=== PATIENT | female | born 1995 | race Caucasian/White ===

== ENCOUNTER 2023-07-25 23:11 | Inpatient (IN) | payer SELFPAY ==
[2023-07-25 23:14] VITALS: BP 158/98; PULSE 55; RESP 15; TEMP 36.6; O2SAT 100; BMI 40.8
[2023-07-25 23:19] VITALS: PULSE 54; RESP 14; O2SAT 96
--- NOTE | 2023-07-25 23:31 | W.ED.ABDPA2 ---
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 The pain has reportedly been intermittent, primarily located in the epigastric region though states that it moves to the right upper quadrant as well. She notes some associated nausea and states today she began vomiting, too many episodes to count. She denies any bowel or bladder changes. No fevers or chills reported. She does note that the pain seems to be worsened with eating spicy foods. She still has her gallbladder and appendix. No other pertinent medical history to report. Patient's first language is [place], though friend in the room is able to successfully translate. Pain is present on examination, and reportedly a sharp. MD elicited complaint: abdominal pain Pertinent past history: none Onset (ago): day(s) Pain Consistency: intermittent Location: Epigastric and RUQ Severity: moderate Quality: sharp Exacerbating factors: eating Relieving factors: nothing Associated Symptoms: Reports nausea and vomiting; Denies bloating, change in stool character, chills, constipation, diarrhea, dysuria, fever(s) and hematochezia Review of Systems General: Reports: 10 or more systems reviewed and unremarkable except in HPI and below Const: Denies: fever(s), chills, change in appetite, change in weight or diaphoresis ENMT: Denies: throat pain or hoarseness Card: Denies: chest pain, palpitations or lightheadedness Resp: Denies: dyspnea, productive cough or wheezing GI: Reports: abdominal pain, nausea and vomiting; Denies: diarrhea, constipation, bloating, change in stool character or hematochezia : Denies: flank pain, difficulty voiding, dysuria, urinary frequency or urinary urgency Musc: Denies: neck pain or back pain Skin/Breast: Denies: rash or new lesions Neuro: Denies: headache(s) or dizziness Physical Exam Const: COMMON NORMALS: patient oriented x3, healthy appearing, alert and well nourished EXAM LIMITATIONS: language barrier GENERAL APPEARANCE: cooperative, comfortable and in distress (Clutching middle of abdomen) NUTRITIONAL APPEARANCE: obese ORIENTATION/CONSCIOUSNESS: Yes awake HENMT: COMMON NORMALS: normocephalic, atraumatic, hearing grossly normal bilaterally, external ears normal, Normal external nose present, Normal nasal mucous membranes and turbinates present and moist oral mucous membranes HEAD & SCALP: normocephalic and atraumatic NOSE: Normal external nose present and Normal nasal mucous membranes and turbinates present EXTERNAL EAR: Yes external ears normal Eye: COMMON NORMALS: Equal, round and reactive pupils present, EOMs intact bilaterally, conjunctivae normal and normal visual chawla by confrontation CONJUNCTIVA: Yes conjunctivae normal PUPIL: Yes Equal, round and reactive pupils present Neck/C-Spine: COMMON NORMALS: full ROM, supple, no meningeal signs and no JVD Resp: COMMON NORMALS: normal respiratory effort, No retractions, No use of accessory muscles and clear to auscultation bilaterally AUSCULTATION: clear to auscultation bilaterally, no crackles, no rales, no rhonchi and no wheezes Cardio: COMMON NORMALS: no JVD, regular rate, regular rhythm, S1 normal heart sound present, S2 normal heart sound present, No gallops present (Cardio), No clicks present (Cardio), No murmurs present (Cardio), No rub (Cardio) and Peripheral pulses 2+ throughout RATE: regular rate RHYTHM: regular rhythm HEART SOUNDS: S1 normal heart sound present and S2 normal heart sound present PERIPHERAL PULSES: Peripheral pulses 2+ throughout GI: COMMON NORMALS: Normal to inspection, nondistended, normoactive bowel sounds present, Soft to palpation, No hepatosplenomegaly present and no masses INSPECTION: Yes central obesity AUSCULTATION: Yes normoactive bowel sounds PALPATION: Yes Soft to palpation, Yes Tenderness to palpation present (GI) (Epigastric and right upper quadrant, negative Pickard's), No Guarding due to palpation present (GI), No Rigid due to palpation and Yes No hepatosplenomegaly present RECTAL EXAM: deferred : COMMON NORMALS: Yes no CVA tenderness BLADDER/KIDNEY EXAM: Yes no CVA tenderness Back/Pelvis: COMMON NORMALS: no CVA tenderness Extremity: COMMON NORMALS: normal to inspection and full ROM Neuro: COMMON NORMALS: patient oriented x3, moves all extremities, no focal motor deficits and no sensory deficits noted SENSORIUM/ORIENTATION: Yes alert MENINGEAL SIGNS: Yes no meningeal signs Psych: COMMON NORMALS: mental status grossly normal, cooperative and speech normal SPEECH: Yes normal speech Skin: COMMON NORMALS: no rashes or lesions noted GENERAL SKIN EXAM: no rashes or lesions noted Course Vital Signs: Vital signs: Vital Signs Temperature 98.3 F 07/26/23 11:13 Pulse Rate 57 L 07/26/23 11:13 Respiratory Rate 15 07/26/23 11:13 Blood Pressure 120/77 07/26/23 11:13 Pulse Oximetry 98 07/26/23 11:13 Oxygen Delivery Me thod Room Air 07/26/23 11:13 MDM - Abdominal Pain Lab Data 07/26/23 00:00 07/26/23 06:34 Labs/Radiology: Radiology Impressions Gallbladder Ultrasound 07/26/23 00:01 IMPRESSION: 1. Cholelithiasis. No convincing secondary findings of acute cholecystitis. 2. Negative for biliary obstruction. Abdomen/Pelvis CT 07/26/23 00:28 IMPRESSION: 1. Negative for acute abdominopelvic pathology. No specific CT scan features of acute pancreatitis identified. 2. Incidental finding small simple left ovarian cyst. No further imaging is recommended. (Reference: Uday) REFERENCES: Frye et al. Management of Incidental Adnexal Findings on CT and MRI: A White Paper of the ACR Incidental Findings Committee, J Am [facility]en Radiol. 2019;17(2):248-254. Cholangiopancreatography MRI 07/26/23 05:38 IMPRESSION: 1. Cholelithiasis. No changes of acute cholecystitis. 2. No changes of primary sclerosing cholangitis. Venous Duplex 07/26/23 06:04 IMPRESSION: No evidence of deep vein thrombosis. Laboratory Results WBC 7.73 10^3/uL (3.29-11.43) 07/26/23 00:00 RBC 4.73 10^6/uL (3.85-5.65) 07/26/23 00:00 Hgb 11.80 g/dL (11.27-16.99) 07/26/23 00:00 Hct 37.4 % (36-47) 07/26/23 00:00 MCV 79.1 fl (85-98) L 07/26/23 00:00 MCH 24.9 pg (27-33) L 07/26/23 00:00 MCHC 31.6 g/dL (30-55) 07/26/23 00:00 RDW 15.1 % (12.1-15.1) 07/26/23 00:00 Plt Count 305 10^3/cmm (157-399) 07/26/23 00:00 MPV 10.3 fL (7.4-10.4) 07/26/23 00:00 Neut % (Auto) 72.8 % 07/26/23 00:00 Lymph % (Auto) 21.9 % 07/26/23 00:00 Arthur % (Auto) 3.8 % 07/26/23 00:00 Eos % (Auto) 1.0 % 07/26/23 00:00 Baso % (Auto) 0.4 % 07/26/23 00:00 Neut # (Auto) 5.63 10^3/uL (1.8-7.7) 07/26/23 00:00 Lymph # (Auto) 1.7 10^3/uL (0.8-4.8) 07/26/23 00:00 Arthur # (Auto) 0.3 10^3/uL (0.2-0.9) 07/26/23 00:00 Eos # (Auto) 0.1 10^3/uL (0.0-0.8) 07/26/23 00:00 Baso # (Auto) 0.0 10^3/uL (0.0-0.1) 07/26/23 00:00 Nucleated RBC % (auto) 0 % 07/26/23 00:00 Nucleated RBCs # 0.0 /100WBC 07/26/23 00:00 PT 13.10 SECONDS (12.1-14.9) 07/25/23 23:55 INR 0.97 (0.8-1.2) 07/25/23 23:55 D-Dimer 0.78 ug/mLFEU (0-0.59) H 07/25/23 23:55 Sodium 136 mmol/L (136-145) 07/26/23 00:00 Potassium 3.5 mmol/L (3.5-5.1) 07/26/23 00:00 Chloride 99 mmol/L (98-107) 07/26/23 00:00 Carbon Dioxide 22 mmol/L (22-29) 07/26/23 00:00 Anion Gap 18.5 (5-19) 07/26/23 00:00 BUN 10 mg/dL (6-20) 07/26/23 00:00 Creatinine 0.5 mg/dL (0.5-0.9) 07/26/23 00:00 GFR Calculation 148.0 mL/min (90-130) H 07/26/23 00:00 Glucose 142 mg/dL (65-115) H 07/26/23 00:00 Calculated Osmolality 283 mOsm/kg (285-295) L 07/26/23 00:00 Lactic Acid 1.9 mmol/L (0.5-2.2) 07/25/23 23:55 Calcium 9.6 mg/dL (8.5-10.5) 07/26/23 00:00 Total Bilirubin 0.9 mg/dL (0.15-1.2) 07/26/23 00:00 GGT 629 U/L (5-36) H 07/25/23 23:55 AST 450 U/L (0-32) H 07/26/23 00:00 ALT 395 U/L (0-33) H 07/26/23 00:00 Alkaline Phosphatase 203 U/L (35-105) H 07/26/23 00:00 Lactate Dehydrogenase 530 U/L (135-214) H 07/25/23 23:55 C-Reactive Protein 3.3 mg/L (0.0-4.9) 07/25/23 23:55 Total Protein 8.4 g/dL (6.6-8.7) 07/26/23 00:00 Albumin 4.7 g/dL (3.5-5.2) 07/26/23 00:00 Globulin 3.7 g/dL (1.3-4.6) 07/26/23 00:00 Lipase 461 U/L (13-60) H 07/26/23 00:00 TSH 1.03 uIU/mL (0.27-4.20) 07/25/23 23:55 HCG, Qual Negative (Negative) 07/26/23 00:00 Urine Color Yellow (Yellow) 07/26/23:26 Urine Appearance Slightly cloudy (CLEAR) 05/25/24 01:26 Urine pH 9 (5-7) H 07/26/23 01:26 Ur Specific [place] 1.015 (1.005-1.030) 07/26/23 01:26 Urine Protein Neg (Negative) 07/26/23 01:26 Urine Glucose (UA) Norm (Normal) 07/26/23 01:26 Urine Ketones 2+ (Negative) H 07/26/23 01:26 Urine Blood 2+ (Negative) H 07/26/23 01:26 Urine Nitrate Negative (Negative) 07/26/23 01:26 Urine Bilirubin Neg (Negative) 07/26/23 01:26 Prot Sulfosalicylic Acd Negative (Negative) 07/26/23 01:26 Urine Urobilinogen Neg mg/dL (Negative) 07/26/23 01:26 Ur Leukocyte Esterase Trace (Negative) H 07/26/23 01:26 Urine RBC 5-10 /hpf (0-2) H 07/26/23 01:26 Urine WBC 0-4 /hpf (0-5) H 07/26/23 01:26 Ur Squamous Epith Cells 5-10 /hpf (0-5) H 07/26/23 01:26 Amorphous Sediment Trace /hpf 07/26/23 01:26 Urine Bacteria 1+ /hpf (NONE) H 07/26/23 01:26 Urine Opiates Screen Positive ng/mL (Negative) H 07/26/23 01:26 Acetaminophen < 5.0 ug/mL (10-30) L 07/25/23 23:55 Ur Barbiturates Screen Negative ng/mL (Negative) 07/26/23 01:26 Ur Phencyclidine Scrn Negative ng/mL (Negative) 07/26/23 01:26 Ur Amphetamines Screen Negative ng/mL (Negative) 07/26/23 01:26 U Benzodiazepines Scrn Negative ng/mL (Negative) 07/26/23 01:26 Urine Cocaine Screen Negative ng/mL (Negative) 07/26/23 01:26 U Marijuana (THC) Screen Negative ng/mL (Negative) 07/26/23 01:26 Ethyl Alcohol < 10 mg/dL (0-10) 07/25/23 23:55 All radiology interpretation(s) finalized by discharge Discharge Plan Discharge Patient Disposition: Admitted As Inpatient Admit Provider: Jany Mijares Clinical Impression: Right upper quadrant abdominal pain, Elevated LFTs, Elevated lipase Cholelithiasis Qualifiers: Cholelithiasis location: gallbladder Cholecystitis presence: without cholecystitis Biliary obstruction: without biliary obstruction Qualified Code(s): K80.20 - Calculus of gallbladder without cholecystitis without obstruction Nausea & vomiting Qualifiers: Vomiting type: unspecified Qualified Code(s): R11.2 - Nausea with vomiting, unspecified Condition: Stable Coding Level of Care Code ED Director Of Corporate Sales for Chg Fwd Documented by User: Tevin Daniels DO 07/26/23 04:35 HPI - Abdominal Pain General: Chief Complaint: Abdominal Pain Stated Complaint: Center abd pain Time Seen by Provider: 07/25/23 23:21 Course Vital Signs: Vital signs: Vital Signs Temperature 98.3 F 07/26/23 11:13 Pulse Rate 57 L 07/26/23 11:13 Respiratory Rate 15 07/26/23 11:13 Blood Pressure 120/77 07/26/23 11:13 Pulse Oximetry 98 07/26/23 11:13 Oxygen Delivery Me thod Room Air 07/26/23 11:13 MDM - Abdominal Pain Medical Decision Making Patient care transferred over to myself at shift change. Reviewed the lab that showed elevated liver enzymes with AST of 450 ALT of 395 total bilirubin normal at 0.9 and elevated lipase of 461, abdomen and pelvic CT scan showed features negative for intra-abdominal pathology no acute pancreatitis identified, gallbladder showed ultrasound of cholelithiasis no convincing findings of cholecystitis. Negative for obstruction. Patient was given total of 8 mg of morphine, 10 mg of Reglan, 1 L normal saline in the ER. Tried calling [facility] on-call several times were unable to get a hold of them. Consulted Dr. Mijares who agreed to place patient inpatient for further evaluation and treatment. Dr. Yuridia [facility] from [facility] eventually called back I reviewed the case with him he suggested that it this is probably a small CBD stone that is already passed in the liver enzymes and lipase will probably be trending down. He did suggest we get a viral hepatitis panel as well as do an MRCP. Lab Data 07/26/23 00:00 07/26/23 06:34 Labs/Radiology: Radiology Impressions Gallbladder Ultrasound 07/26/23 00:01 IMPRESSION: 1. Cholelithiasis. No convincing secondary findings of acute cholecystitis. 2. Negative for biliary obstruction. Abdomen/Pelvis CT 07/26/23 00:28 IMPRESSION: 1. Negative for acute abdominopelvic pathology. No specific CT scan features of acute pancreatitis identified. 2. Incidental finding small simple left ovarian cyst. No further imaging is recommended. (Reference: Uday) REFERENCES: Uday et al. Management of Incidental Adnexal Findings on CT and MRI: A White Paper of the ACR Incidental Findings Committee, J Am [facility]iol. 2019;17(2):248-254. Cholangiopancreatography MRI 07/26/23 05:38 IMPRESSION: 1. Cholelithiasis. No changes of acute cholecystitis. 2. No changes of primary sclerosing cholangitis. Venous Duplex 07/26/23 06:04 IMPRESSION: No evidence of deep vein thrombosis. Laboratory Results WBC 7.73 10^3/uL (3.29-11.43) 07/26/23 00:00 RBC 4.73 10^6/uL (3.85-5.65) 07/26/23 00:00 Hgb 11.80 g/dL (11.27-16.99) 07/26/23 00:00 Hct 37.4 % (36-47) 07/26/23 00:00 MCV 79.1 fl (85-98) L 07/26/23 00:00 MCH 24.9 pg (27-33) L 07/26/23 00:00 MCHC 31.6 g/dL (30-55) 07/26/23 00:00 RDW 15.1 % (12.1-15.1) 07/26/23 00:00 Plt Count 305 10^3/cmm (157-399) 07/26/23 00:00 MPV 10.3 fL (7.4-10.4) 07/26/23 00:00 Neut % (Auto) 72.8 % 07/26/23 00:00 Lymph % (Auto) 21.9 % 07/26/23 00:00 Arthur % (Auto) 3.8 % 07/26/23 00:00 Eos % (Auto) 1.0 % 07/26/23 00:00 Baso % (Auto) 0.4 % 07/26/23 00:00 Neut # (Auto) 5.63 10^3/uL (1.8-7.7) 07/26/23 00:00 Lymph # (Auto) 1.7 10^3/uL (0.8-4.8) 07/26/23 00:00 Arthur # (Auto) 0.3 10^3/uL (0.2-0.9) 07/26/23 00:00 Eos # (Auto) 0.1 10^3/uL (0.0-0.8) 07/26/23 00:00 Baso # (Auto) 0.0 10^3/uL (0.0-0.1) 07/26/23 00:00 Nucleated RBC % (auto) 0 % 07/26/23 00:00 Nucleated RBCs # 0.0 /100WBC 07/26/23 00:00 PT 13.10 SECONDS (12.1-14.9) 07/25/23 23:55 INR 0.97 (0.8-1.2) 07/25/23 23:55 D-Dimer 0.78 ug/mLFEU (0-0.59) H 07/25/23 23:55 Sodium 136 mmol/L (136-145) 07/26/23 00:00 Potassium 3.5 mmol/L (3.5-5.1) 07/26/23 00:00 Chloride 99 mmol/L (98-107) 07/26/23 00:00 Carbon Dioxide 22 mmol/L (22-29) 07/26/23 00:00 Anion Gap 18.5 (5-19) 07/26/23 00:00 BUN 10 mg/dL (6-20) 07/26/23 00:00 Creatinine 0.5 mg/dL (0.5-0.9) 07/26/23 00:00 GFR Calculation 148.0 mL/min (90-130) H 07/26/23 00:00 Glucose 142 mg/dL (65-115) H 07/26/23 00:00 Calculated Osmolality 283 mOsm/kg (285-295) L 07/26/23 00:00 Lactic Acid 1.9 mmol/L (0.5-2.2) 07/25/23 23:55 Calcium 9.6 mg/dL (8.5-10.5) 07/26/23 00:00 Total Bilirubin 0.9 mg/dL (0.15-1.2) 07/26/23 00:00 GGT 629 U/L (5-36) H 07/25/23 23:55 AST 450 U/L (0-32) H 07/26/23 00:00 ALT 395 U/L (0-33) H 07/26/23 00:00 Alkaline Phosphatase 203 U/L (35-105) H 07/26/23 00:00 Lactate Dehydrogenase 530 U/L (135-214) H 07/25/23 23:55 C-Reactive Protein 3.3 mg/L (0.0-4.9) 07/25/23 23:55 Total Protein 8.4 g/dL (6.6-8.7) 07/26/23 00:00 Albumin 4.7 g/dL (3.5-5.2) 07/26/23 00:00 Globulin 3.7 g/dL (1.3-4.6) 07/26/23 00:00 Lipase 461 U/L (13-60) H 07/26/23 00:00 TSH 1.03 uIU/mL (0.27-4.20) 07/25/23 23:55 HCG, Qual Negative (Negative) 07/26/23 00:00 Urine Color Yellow (Yellow) 07/26/23:26 Urine Appearance Slightly cloudy (CLEAR) 07/26/23 01:26 Urine pH 9 (5-7) H 07/26/23 01:26 Ur Specific [place] 1.015 (1.005-1.030) 07/26/23 01:26 Urine Protein Neg (Negative) 07/26/23:26 Urine Glucose (UA) Norm (Normal) 07/26/23 01:26 Urine Ketones 2+ (Negative) H 07/26/23 01:26 Urine Blood 2+ (Negative) H 07/26/23 01:26 Urine Nitrate Negative (Negative) 07/26/23 01:26 Urine Bilirubin Neg (Negative) 07/26/23 01:26 Prot Sulfosalicylic Acd Negative (Negative) 07/26/23 01:26 Urine Urobilinogen Neg mg/dL (Negative) 07/26/23 01:26 Ur Leukocyte Esterase Trace (Negative) H 07/26/23 01:26 Urine RBC 5-10 /hpf (0-2) H 07/26/23 01:26 Urine WBC 0-4 /hpf (0-5) H 07/26/23 01:26 Ur Squamous Epith Cells 5-10 /hpf (0-5) H 07/26/23 01:26 Amorphous Sediment Trace /hpf 07/26/23 01:26 Urine Bacteria 1+ /hpf (NONE) H 07/26/23 01:26 Urine Opiates Screen Positive ng/mL (Negative) H 07/26/23 01:26 Acetaminophen < 5.0 ug/mL (10-30) L 07/25/23 23:55 Ur Barbiturates Screen Negative ng/mL (Negative) 07/26/23 01:26 Ur Phencyclidine Scrn Negative ng/mL (Negative) 07/26/23 01:26 Ur Amphetamines Screen Negative ng/mL (Negative) 07/26/23 01:26 U Benzodiazepines Scrn Negative ng/mL (Negative) 07/26/23 01:26 Urine Cocaine Screen Negative ng/mL (Negative) 07/26/23 01:26 U Marijuana (THC) Screen Negative ng/mL (Negative) 07/26/23 01:26 Ethyl Alcohol < 10 mg/dL (0-10) 07/25/23 23:55 Discharge Plan Discharge Patient Disposition: Admitted As Inpatient Admit Provider: Jany Mijares Clinical Impression: Right upper quadrant abdominal pain, Elevated LFTs, Elevated lipase Cholelithiasis Qualifiers: Cholelithiasis location: gallbladder Cholecystitis presence: without cholecystitis Biliary obstruction: without biliary obstruction Qualified Code(s): K80.20 - Calculus of gallbladder without cholecystitis without obstruction Nausea & vomiting Qualifiers: Vomiting type: unspecified Qualified Code(s): R11.2 - Nausea with vomiting, unspecified Condition: Stable Coding Level of Care Code ED Director Of Corporate Sales for Nella Bragg
[2023-07-25] MEDS: lidocaine 2% viscous 15 ML, aluminum-mag hydrox-simethicon 30 ML, sucralfate oral liq 1 GM PO (23:43)
[2023-07-25 23:44] VITALS: RESP 18; O2SAT 96
[2023-07-25] MEDS: morphine 4 mg/mL SDV 1 mL IVP (23:44)
[2023-07-25] MEDS: sodium chloride 0.9% 1,000 ML 999 ML IV (23:55)
[2023-07-25] MEDS: metoclopramide 5 mg/mL SDV 2 mL 10 MG IVP (23:56)
[2023-07-26] VITALS (13 sets, daily range): BP systolic 120–162; BP diastolic 63–84; PULSE 50–87; RESP 15–20; TEMP 36.6–36.9; O2SAT 96–100
--- NOTE | 2023-07-26 00:01 | USR_ITS ---
PROCEDURE INFORMATION: Exam: US Abdomen, Limited; Right Upper Quadrant Exam date and time: 07/26/2023 1:01 AM Age: 28 years old Clinical indication: Abdominal pain; Localized; Right upper quadrant (ruq); Additional info: Epi/ruq pain TECHNIQUE: Imaging protocol: Real time ultrasound of the abdomen with image documentation. Limited exam focused on the right upper quadrant. COMPARISON: CT abdomen pelvis w con* [id number] 07/26/2023 12:55 AM FINDINGS: Liver: Normal. No masses. Gallbladder: Cholelithiasis. Unremarkable gallbladder wall thickness measuring 2 mm. Negative for pericholecystic fluid. Biliary ducts: Normal. No stones. No dilation. Pancreas: Visualized pancreas is unremarkable. Right kidney: Normal. No mass. No hydronephrosis. Intraperitoneal space: Negative for intraperitoneal fluid collection. US/US gall bladder [id number] IMPRESSION: 1. Cholelithiasis. No convincing secondary findings of acute cholecystitis. 2. Negative for biliary obstruction.
[2023-07-26 00:08] LABS: Basophils % 0.4 %; Eosinophils # 0.1 10^3/uL (0.0-0.8); Hematocrit 37.4 % (36-47); Lymphocytes # 1.7 10^3/uL (0.8-4.8); Lymphocytes % 21.9 %; Mean Corpuscular HGB Conc 31.6 g/dL (30-55); Mean Corpuscular Hemoglobin 24.9 pg (27-33); Mean Corpuscular Volume 79.1 fl (85-98); Mean Platelet Volume 10.3 fL (7.4-10.4); Monocytes # 0.3 10^3/uL (0.2-0.9); Monocytes % 3.8 %; Neutrophils # 5.63 10^3/uL (1.8-7.7); Neutrophils % 72.8 %; Nucleated Red Blood Cells % 0 %; Platelet Count 305 10^3/cmm (157-399); Red Blood Count 4.73 10^6/uL (3.85-5.65); Red Cell Distribution Width 15.1 % (12.1-15.1); White Blood Count 7.73 10^3/uL (3.29-11.43)
[2023-07-26 00:15] LABS: HCG, Serum Qual Negative (Negative)
[2023-07-26 00:21] LABS: Alanine Aminotransferase 395 U/L (0-33); Albumin Level 4.7 g/dL (3.5-5.2); Alkaline Phosphatase 203 U/L (35-105); Anion Gap 18.5 (5-19); Aspartate Amino Transferase 450 U/L (0-32); Blood Urea Nitrogen 10 mg/dL (6-20); Calcium 9.6 mg/dL (8.5-10.5); Carbon Dioxide 22 mmol/L (22-29); Chloride 99 mmol/L (98-107); Creatinine Clr Calc Pharmacy 174.0117; Globulin 3.7 g/dL (1.3-4.6); Glucose 142 mg/dL (65-115); Osmolality Calculated 283 mOsm/kg (285-295); Potassium 3.5 mmol/L (3.5-5.1); Sodium 136 mmol/L (136-145); Total Bilirubin 0.9 mg/dL (0.15-1.2); Total Protein 8.4 g/dL (6.6-8.7)
[2023-07-26 00:27] LABS: Lipase 461 U/L (13-60)
--- NOTE | 2023-07-26 00:28 | CTR_ITS ---
PROCEDURE INFORMATION: Exam: CT Abdomen And Pelvis With Contrast Exam date and time: 07/26/2023 12:55 AM Age: 28 years old Clinical indication: Pain and abnormal findings; Abnormal lab test; Elevated lipase; Abdominal pain; Patient HX: Epigastric pain with lipase of 461. ; Additional info: Epigastric pain/elevated lipase TECHNIQUE: Imaging protocol: Computed tomography of the abdomen and pelvis with contrast. Radiation optimization: All CT scans at this facility use at least one of these dose optimization techniques: automated exposure control; mA and/or kV adjustment per patient size (includes targeted exams where dose is matched to clinical indication); or iterative reconstruction. Contrast material: OMNI 350; Contrast volume: 100 ml; Contrast route: INTRAVENOUS (IV); COMPARISON: US gall bladder [id number] 08/30/2017 1:34 AM RADIATION DOSE METRICS: Total DLP (mGy-cm): 896.41 FINDINGS: Liver: Normal. No mass. Gallbladder and bile ducts: Normal. No calcified stones. No ductal dilation. Pancreas: Normal. No ductal dilation. Spleen: Normal. No splenomegaly. Adrenal glands: Normal. No mass. Kidneys and ureters: Normal. No hydronephrosis. Stomach and bowel: Unremarkable. No obstruction. No mucosal thickening. Appendix: Normal appendix. Intraperitoneal space: Unremarkable. No free air. No significant fluid collection. Vasculature: Unremarkable. No abdominal aortic aneurysm. Lymph nodes: Unremarkable. No enlarged lymph nodes. Urinary bladder: Unremarkable as visualized. Reproductive: Simple left ovary cyst measures 3.9 cm x 3.8 cm x 3.5 cm. Unremarkable right adnexa. Unremarkable uterus. Bones/joints: Unremarkable. No acute fracture. Soft tissues: Unremarkable. CT/CT abdomen pelvis w con* [id number] IMPRESSION: 1. Negative for acute abdominopelvic pathology. No specific CT scan features of acute pancreatitis identified. 2. Incidental finding small simple left ovarian cyst. No further imaging is recommended. (Reference: Uday) REFERENCES: Uday et al. Management of Incidental Adnexal Findings on CT and MRI: A White Paper of the ACR Incidental Findings Committee, J Am [facility]ileen Radiol. 2019;17(2):248-254.
[2023-07-26 00:46] LABS: C Reactive Protein 3.3 mg/L (0.0-4.9)
[2023-07-26] MEDS: iohexol 350 mg/mL 500 mL Btl (per mL) IV (00:56)
[2023-07-26 01:53] LABS: Add Urine Microscopic? YES; Amorphous Sediment Urine TRACE /hpf; Bacteria Urine 1+ /hpf; Bilirubin Urine Neg (Negative); Blood Urine 2+ (Negative); Glucose Urine UA Norm (Normal); Ketones Urine 2+ (Negative); Leukocyte Esterase Urine Trace (Negative); Nitrate Urine Negative (Negative); Protein Urine Neg (Negative); Specific Gravity, Urine 1.015 (1.005-1.030); Sulfosalicylic Acid Urine Negative (Negative); Urine Appearance Slightly Cloudy (CLEAR); Urine Color Yellow (Yellow); Urobilinogen Urine Neg (Negative); WBC Urine 0-4 /hpf (0-5); pH Urine 9 (5-7)
[2023-07-26 02:59] LABS: Gamma Glutamyl Transferase 629 U/L (5-36)
[2023-07-26] MEDS: morphine 4 mg/mL SDV 1 mL IVP (03:18)
[2023-07-26 03:31] LABS: Amphetamines Screen Urine Negative (Negative); Barbiturates Screen Urine Negative (Negative); Benzodiazepines Screen Urine Negative (Negative); Cocaine Screen Urine Negative (Negative); Opiate Screen Urine Positive (Negative); PCP Screen Urine Negative (Negative); THC Screen Urine Negative (Negative)
--- NOTE | 2023-07-26 05:34 | P.HP_ITS ---
Providers/Chief Complaint 2 Admitting Physician: Jany Mijares MD Chief Complaint: Center abd pain History of Present Illness Leticia Kennedy is a 28 year old female With no significant past medical history presented to the hospital today with complaint of nausea and vomiting. She started vomiting this morning and has vomited twice and normal today. Denies diarrhea, abdominal pain, lower extremity edema, fever, chills, cough or any other symptoms. Her main complaint is abdominal pain which is mainly in the epigastric region. Workup was initiated in the ER. CT abdomen pelvis was done which was negative for acute abdominal pelvic pathology. Nonspecific CT scan cultures of acute pancreatitis identified. Gallbladder ultrasound was also done which showed cholelithiasis but no convincing secondary findings of acute cholecystitis. Negative for biliary obstruction. Patient's labs are significant for AST 450, ALT 395, alkaline phosphatase 203, GGT 629. Patient states she is ?100 but has not gone back to the country since 2013. Lipase 461 today. UA positive for 2+ ketones, 2+ blood, 0-4 WBCs, 1+ bacteria. Urine drug screen positive for opioids. Patient did get morphine in ER today. Patient is Romanian and speaks limited Guatemalan. Her sister did help with translating.. She denies drug use, recent illness. Medications/Allergies Allergies Allergy/AdvReac Type Severity Reaction Status Date / Time No Known Allergies Allergy Verified 07/25/23 23:20 Vitals/I&O/Wt Last Vital Signs Temp 97.9 F 07/25/23 23:14 Pulse 65 07/26/23 04:00 Resp 16 07/26/23 04:00 BP 142/79 07/26/23 04:00 Pulse Ox 97 07/26/23 04:00 O2 Del Method Room Air 07/26/23 05:12 07/25/23 07/25/23 07/26/23 14:59 22:59 06:59 Intake Total 1000 / 1000 Balance 1000 / 1000 Weight last 48 hrs Weight 97.522 kg Weight 94.801 kg Physical Exam 2 Const: COMMON NORMALS: no acute distress, average body habitus, patient oriented x3, no limitations, healthy appearing, alert and well nourished HENMT: COMMON NORMALS: normocephalic, atraumatic, hearing grossly normal bilaterally, external ears normal, moist oral mucous membranes and oropharynx normal Eye: COMMON NORMALS: EOMs intact bilaterally, conjunctivae normal and no scleral icterus Chest: COMMONS NORMALS: normal palpation of entire chest wall Cardio: COMMON NORMALS: no JVD, regular rate, regular rhythm, S1 normal heart sound present, S2 normal heart sound present, No rub (Cardio) and Peripheral pulses 2+ throughout GI: COMMON NORMALS: Normal to inspection, nondistended, normoactive bowel sounds present, Soft to palpation and non-tender Extremity: COMMON NORMALS: full ROM, no clubbing, cyanosis or edema and no calf tenderness Neuro: COMMON NORMALS: patient oriented x3 and moves all extremities Data 07/26/23 00:00 07/26/23 00:00 A&P Assessment and plan (1) Acute hepatitis: (2) Cholelithiasis: Qualifiers: Biliary obstruction: without biliary obstruction Cholecystitis presence: without cholecystitis Cholelithiasis location: gallbladder Qualified Code(s): K80.20 - Calculus of gallbladder without cholecystitis without obstruction (3) Nausea & vomiting: Qualifiers: Vomiting type: unspecified Qualified Code(s): R11.2 - Nausea with vomiting, unspecified (4) Elevated LFTs: (5) Elevated lipase: (6) Right upper quadrant abdominal pain: Plan #Acute hepatitis, liver enzymes elevated #Nausea/vomiting, epigastric pain #cholelithiasis ? Check hepatitis profile ? Check AMA, smooth muscle antibody, check direct bilirubin, maribel ? Will check MRCP to rule out PSC ? Check EBV ? Check LDH ? Check ferritin ? Check PT/INR ? Check acetaminophen level ? Check Cmv igm, -Check D-dimer ? If above testing is negative patient may require liver biopsy for further workup. -Once PT/INR is resulted we will check a Madrey score to assess need for steroids. ? Recommend GI consultation. ? Lipase 416. Will keep n.p.o. placed on normal saline 150 cc/h - zofran for nausea Full code DVT prophylaxis: Heparin SQ twice daily Attestations 2 Medical Necessity Statement*: > 2 midnight stay for w/u & mgmt of acute hepatitis Diagnoses Acute hepatitis B17.9 Cholelithiasis K80.20 Biliary obstruction: without biliary obstruction Cholecystitis presence: without cholecystitis Cholelithiasis location: gallbladder Nausea & vomiting R11.2 Vomiting type: unspecified Elevated LFTs R79.89 Elevated lipase R74.8 Right upper quadrant abdominal pain R10.11
--- NOTE | 2023-07-26 05:38 | MRR_ITS ---
PROCEDURE INFORMATION: Exam: MR Abdomen Without Contrast, Biliary System Exam date and time: 07/26/2023 10:38 AM Age: 28 years old Clinical indication: Abdominal pain; Localized; Right upper quadrant (ruq); Additional info: R/O primary sclerosing cholangitis TECHNIQUE: Imaging protocol: MR of the abdomen without contrast. Exam focused on the biliary system and pancreatic ducts. Routine 3D-MRCP images were acquired and processed without radiologist supervision. COMPARISON: CT abdomen pelvis w con* [id number] 07/26/2023 12:55 AM FINDINGS: Liver: No mass. Gallbladder and bile ducts: There is cholelithiasis. No changes of primary sclerosing cholangitis. Pancreas: Unremarkable. No ductal dilation. Intraperitoneal space: No fluid collection. MR/MR MRCP [id number] IMPRESSION: 1. Cholelithiasis. No changes of acute cholecystitis. 2. No changes of primary sclerosing cholangitis.
[2023-07-26 05:59] LABS: INR 0.97 (0.8-1.2)
[2023-07-26 06:01] LABS: D Dimer 0.78 ug/mLFEU (0-0.59)
[2023-07-26 06:02] LABS: Lactic Sepsis W/Reflex 1.9 mmol/L (0.5-2.2)
--- NOTE | 2023-07-26 06:04 | USR_ITS ---
PROCEDURE INFORMATION: Exam: US Duplex Lower Extremity Veins, Bilateral Exam date and time: 07/26/2023 10:09 AM Age: 28 years old Clinical indication: Screening exam; R/O dvt TECHNIQUE: Imaging protocol: Real-time duplex ultrasound of the bilateral extremities with 2-D long scale, color Doppler flow and spectral waveform analysis including responses to compression and other maneuvers (when performed) with image documentation. Complete exam focused on the lower extremity veins. COMPARISON: CT abdomen pelvis w con* [id number] 07/26/2023 12:55 AM FINDINGS: Right deep veins: Unremarkable. The common femoral, femoral, proximal profunda femoral and popliteal veins are patent without thrombus. Normal Doppler waveforms. Normal compressibility and/or augmentation response. Left deep veins: Unremarkable. The common femoral, femoral, proximal profunda femoral and popliteal veins are patent without thrombus. Normal Doppler waveforms. Normal compressibility and/or augmentation response. Superficial veins: Greater saphenous veins at the saphenofemoral junctions are patent bilaterally without thrombus. Soft tissues: Unremarkable. US/CV venous duplex [facility] [id number] IMPRESSION: No evidence of deep vein thrombosis.
[2023-07-26 06:13] LABS: Lactate Dehydrogenase 530 U/L (135-214); Thyroid Stimulating Hormone 1.03 uIU/mL (0.27-4.20)
[2023-07-26 06:14] LABS: Acetaminophen < 5.0 ug/mL (10-30); Alcohol Level < 10 mg/dL (0-10)
[2023-07-26] MEDS: sodium chloride 0.9% 1,000 ML 150 ML IV ×3 (06:59→23:31)
[2023-07-26 07:52] LABS: Alanine Aminotransferase 493 U/L (0-33); Albumin Level 4.5 g/dL (3.5-5.2); Alkaline Phosphatase 199 U/L (35-105); Aspartate Amino Transferase 406 U/L (0-32); Blood Urea Nitrogen 9 mg/dL (6-20); Calcium 9.1 mg/dL (8.5-10.5); Carbon Dioxide 24 mmol/L (22-29); Chloride 101 mmol/L (98-107); Chol HDL Ratio 2.73 mg/dL (0.0-4.40); Cholesterol 199 mg/dL (0-200); Creatinine Clr Calc Pharmacy 176.9156; Globulin 3.4 g/dL (1.3-4.6); Glucose 145 mg/dL (65-115); HDL Cholesterol 73 mg/dL (60-100); LDL Cholesterol Calculated 117 mg/dL (50-129); Osmolality Calculated 285 mOsm/kg (285-295); Sodium 137 mmol/L (136-145); Total Bilirubin 0.4 mg/dL (0.15-1.2); Total Protein 7.9 g/dL (6.6-8.7); Triglycerides 43 mg/dL (0-150); VLDL Cholestrol Calculation 9 mg/dL (0-30)
[2023-07-26 07:59] LABS: Procalcitonin 0.05 ng/mL (0-0.5)
[2023-07-26 08:22] LABS: Hepatitis A Antibody IgM Non-Reactive (Nonreactive); Hepatitis B Core AB, Total Non-Reactive (Nonreactive); Hepatitis B Surface AB 51.8 (11.5-1000); Hepatitis B Surface Antigen Non-Reactive (Nonreactive); Hepatitis C Virus Antibody Non-Reactive (Nonreactive)
--- NOTE | 2023-07-26 12:08 | PC.CHAP ---
Pastoral Care Encounter/Spiritual Assessment Type of Contact [] Declined remediation consultant visit [] Patient/Family/Request visit [] Outpatient visit [] Follow-up visit [] Physician referral [] Code/Alert [] Routine visit [] Staff referral [] Actively dying [] Patient sleeping [] Family support [] [] Out of room [] Palliative care [] [] Receiving care in room [] Pre-surgical visit [] Trauma [] Long length of stay [] ICU visit [] Other: Relational/Emotional Strength [] Patient feels connected with others/family/visitors/staff [] Distress [] Loneliness/isolation [] Abandonment Spirituality of Patient [x] Person of Brandy [] Attends Pentecostalism of their Brandy [] Believes in Prayer [] Reads Bible or Adventism materials [] There are Spiritual issues to be addressed Military Police Officer Interventions [x] Prayer [] Active listening [] Non-anxious presence [] Spiritual/emotional support [] Crisis/trauma care [] Spiritual counseling [] Bereavement support [] Provided bereavement packet [] Provided Bible/devotional materials [] Provided toy/stuffed animal, coloring book to patient or family member [] Provided Communion [] Anointing/[place] [] Salvation [] Completed spiritual assessment [] Other: Impact on Illness or Injury [] Angry [] Fearful [] Anxious [] Often cries [] Exhaustion [] Unable to work [] Unable to attend holiness [] Unable to walk/stand [] Unable to read [] Unable to drive [] Unable to eat/drink [] Unable to sleep [] Unable to be with family [] Patient intubated [] Other: Summary Prayed with pt and 2 others for healing and comfort as staff figure out what is going on Time spent with patient
[2023-07-26] MEDS: morphine 4 mg/mL SDV 1 mL 2 MG IVP ×3 (13:16→23:28)
--- NOTE | 2023-07-26 14:33 | P.PN_ITS ---
Subjective 2 Subjective: The patient is starting to feel better and she continues to have some nausea but it is minimal at this point. She has minimal epigastric and right upper quadrant pain. When her pain was significantly with central and on the right and radiated into her back. This pain has almost completely gone currently. She feels well overall. She denies any chest pain, shortness of breath, diarrhea, constipation, dysuria. Vitals/I&O/Wt Last Vital Signs Temp 98.3 F 07/26/23 11:13 Pulse 57 L 07/26/23 11:13 Resp 17 07/26/23 13:16 BP 120/77 07/26/23 11:13 Pulse Ox 98 07/26/23 11:13 O2 Del Method Room Air 07/26/23 11:13 07/25/23 07/26/23 07/26/23 22:59 06:59 14:59 Intake Total 1000 / 1000 Balance 1000 / 1000 Weight last 48 hrs Weight 215 lb Weight 215 lb Weight 209 lb Physical Exam 2 Narrative: General: Alert and oriented x 3. In no acute distress. Eyes: PERRLA, EOM intact, no discharge. Mouth: No erythema or tonsilar enlargement. No masses noted. Neck: No thyromegaly. No lymphadenopathy. Heart: Regular rate and rhythm. No murmurs. Lungs: Clear to auscultation bilaterally. No wheezes, crackles or ronchi. Abdomen: Soft, mild tenderness in the right upper quadrant and epigastrium. No hepatosplenomegaly. Bowel sounds normal. Extremities: No pitting edema. Data 07/26/23 00:00 07/26/23 06:34 A&P Assessment and plan (1) Cholelithiasis: The patient has cholelithiasis and based on her clinical course and current findings I suspect that she had a small stone that temporarily blocked her bile duct leading to elevated transaminases and mild pancreatitis. Currently she is doing significantly better. We will try a trial of clear liquids to see how she does with this and advance her diet as tolerated. She would likely benefit from having her gallbladder removed to prevent further cholelithiasis as she has numerous stones in her gallbladder. It also sounds as if she has had similar episodes in the past that were mild and did not last as long as this. I spoke with Dr. Salazar who agreed to see the patient in follow-up as an outpatient. I appreciate his assistance with this patient. Qualifiers: Biliary obstruction: without biliary obstruction Cholecystitis presence: without cholecystitis Cholelithiasis location: gallbladder Qualified Code(s): K80.20 - Calculus of gallbladder without cholecystitis without obstruction (2) Elevated LFTs: The patient has elevated LFTs and I suspect it is due to choledocholithiasis that has now resolved. We will recheck levels tomorrow to be sure they are improving. Further labs are also pending to rule out other causes. (3) Elevated lipase: MRCP did not show signs of an active blockage. Likely due to a transient choledocholithiasis. (4) Nausea & vomiting: She has minimal nausea at this point. We will try a liquid diet and if she does well with this, we will plan to advance her diet as tolerated but avoid fatty foods. Qualifiers: Vomiting type: unspecified Qualified Code(s): R11.2 - Nausea with vomiting, unspecified Attestations 2 Medical Necessity Statement*: The patient is currently here for elevated LFTs. I suspect that her stay will cross 2 midnights, however if she improves quicker than expected, then would be a possibility of discharge home tomorrow. Coding Level of Care Code Acute Code for Chg Fwd Diagnoses Cholelithiasis K80.20 Biliary obstruction: without biliary obstruction Cholecystitis presence: without cholecystitis Cholelithiasis location: gallbladder Elevated LFTs R79.89 Elevated lipase R74.8 Nausea & vomiting R11.2 Vomiting type: unspecified
[2023-07-27 04:00] VITALS: BP 116/65; PULSE 65; RESP 18; TEMP 36.8; O2SAT 99
--- NOTE | 2023-07-27 04:02 | PC.NURSE ---
Clear liquid trial During bedside report patient had vomited shortly after trying clear liquid trial. Night nurse offered zofran and patient declined and stated nausea had resolved but she did not want anything else to drink.
[2023-07-27 05:43] LABS: Basophils % 0.2 %; Eosinophils % 0.1 %; Hematocrit 33.6 % (36-47); Lymphocytes # 2.4 10^3/uL (0.8-4.8); Mean Corpuscular HGB Conc 30.7 g/dL (30-55); Mean Corpuscular Hemoglobin 25.1 pg (27-33); Mean Corpuscular Volume 81.8 fl (85-98); Mean Platelet Volume 10.9 fL (7.4-10.4); Monocytes # 0.8 10^3/uL (0.2-0.9); Monocytes % 5.9 %; Neutrophils # 9.93 10^3/uL (1.8-7.7); Neutrophils % 75.4 %; Nucleated Red Blood Cells % 0 %; Platelet Count 281 10^3/cmm (157-399); Red Blood Count 4.11 10^6/uL (3.85-5.65); Red Cell Distribution Width 15.4 % (12.1-15.1); White Blood Count 13.14 10^3/uL (3.29-11.43)
[2023-07-27 05:54] LABS: INR 1.07 (0.8-1.2)
[2023-07-27 06:10] LABS: Alanine Aminotransferase 275 U/L (0-33); Alkaline Phosphatase 154 U/L (35-105); Anion Gap 13.6 (5-19); Aspartate Amino Transferase 72 U/L (0-32); Blood Urea Nitrogen 7 mg/dL (6-20); Calcium 8.1 mg/dL (8.5-10.5); Carbon Dioxide 25 mmol/L (22-29); Chloride 104 mmol/L (98-107); Creatinine Clr Calc Pharmacy 294.8593; Globulin 2.8 g/dL (1.3-4.6); Glomerular Filtration Rate 266.9 mL/min (90-130); Glucose 116 mg/dL (65-115); Osmolality Calculated 287 mOsm/kg (285-295); Potassium 3.6 mmol/L (3.5-5.1); Sodium 139 mmol/L (136-145); Total Bilirubin 0.4 mg/dL (0.15-1.2); Total Protein 6.8 g/dL (6.6-8.7)
[2023-07-27 08:11] VITALS: BP 122/73; PULSE 58; RESP 18; TEMP 36.7; O2SAT 98
[2023-07-27 08:46] LABS: Lipase 40 U/L (13-60)
--- NOTE | 2023-07-27 10:38 | PM.DCS ---
Discharge Providers Date of Admission: 07/26/23 04:05 Date of Discharge: July 27, 2023 Attending Provider at Admission: Jany Mijares MD Attending Provider at Discharge: Jacoby Villa MD Primary Care Provider: None Diagnoses at Discharge Discharge Diagnosis (1) Cholelithiasis: Status: Acute Qualifiers: Biliary obstruction: without biliary obstruction Cholecystitis presence: without cholecystitis Cholelithiasis location: gallbladder Qualified Code(s): K80.20 - Calculus of gallbladder without cholecystitis without obstruction (2) Elevated LFTs: Status: Acute (3) Elevated lipase: Status: Acute (4) Nausea & vomiting: Status: Resolved Qualifiers: Vomiting type: unspecified Qualified Code(s): R11.2 - Nausea with vomiting, unspecified (5) Pancreatitis: Status: Acute (6) Acute hepatitis: Status: Acute Reason for Visit Reason for Visit: Center abd pain Brief History: Leticia Kennedy is a 28 year old female with no significant past medical history who presented to the ER with nausea and vomiting. She had had similar episodes a few weeks ago and a couple weeks ago as well that were short-lived but she then began to have significant nausea and vomiting with right upper quadrant and epigastric abdominal pain that radiated into her back of admission. She was found to have elevated liver enzymes as well as an elevated lipase. Her ultrasound of the gallbladder showed numerous stones. For this reason she was admitted for pancreatitis and further workup. Hospital Course Hospital Course The patient had an extensive workup and her labs have come back negative for so far. CMV, anti-smooth muscle, SANCHEZ and antimitochondrial antibodies are all pending still. She had an MRCP that did not show any significant pathology. Clinically the patient followed a course consistent with choledocholithiasis with a stone that passed on its own. By the time she was admitted to the floor, her nausea and vomiting was improving and her pain was starting to subside. The patient was allowed to start clear liquids and has advanced to full liquids. Prior to discharge we are giving her a trial of GI soft diet and if she does well with this we will plan to discharge home. I spoke with Dr. Salazar regarding her case and to have her follow-up with him as an outpatient to consider getting a laparoscopic cholecystectomy. I suspect that she has been passing multiple small stones and that she is at high risk for passing further stones which could lead to a more significant illness in the future. I explained this in detail to the patient and she expressed verbal understanding for why surgery would be needed. She is in agreement with the current plan of care. Upon discharge, the patient's transaminases have significantly improved and her lipase has returned back to normal. Plan to send a prescription for Zofran to her pharmacy in case it is needed. She was advised to get set up with a primary care physician in her area as well. We will put in a referral to get an appointment with Dr. Salazar as well. Physical Exam Narrative: General: Alert and oriented x 3. In no acute distress. Mouth: No erythema or tonsilar enlargement. No masses noted. Neck: No thyromegaly. No lymphadenopathy. Heart: Regular rate and rhythm. No murmurs. Lungs: Clear to auscultation bilaterally. No wheezes, crackles or ronchi. Abdomen: Soft, minimal tenderness in the right upper quadrant and epigastrium. No hepatosplenomegaly. Bowel sounds normal. Extremities: No pitting edema. Discharge Data Studies Completed and Pending Completed Studies During Hospitalization Category Date Time Status CT abdomen pelvis w con* [id number] Urgent Cat Scan 07/26/23 00:28 Completed MR MRCP [id number] Stat MRI 07/26/23 05:38 Completed US gall bladder [id number] Stat Ultrasound 07/26/23 00:01 Completed US venous duplex lower extremity bilat [CV venous Ultrasound 07/26/23 06:04 [place] [id number]] Stat Pending at discharge Category Date Time Status AMA [Mitochondrial AB Screen] Stat Lab 07/26/23 06:34 Received SANCHEZ Screen w/ Reflex Stat Lab 07/26/23 06:34 Received CMV IGG&IGM Panel Stat Lab 07/26/23 06:34 Received EBV IGG & IGM Stat Lab 07/26/23 05:38 Ordered Smooth Muscle AB Screen w/Refl Stat Lab 07/26/23 06:34 Received Radiology Impressions Gallbladder Ultrasound 07/26/23 00:01 IMPRESSION: 1. Cholelithiasis. No convincing secondary findings of acute cholecystitis. 2. Negative for biliary obstruction. Abdomen/Pelvis CT 07/26/23 00:28 IMPRESSION: 1. Negative for acute abdominopelvic pathology. No specific CT scan features of acute pancreatitis identified. 2. Incidental finding small simple left ovarian cyst. No further imaging is recommended. (Reference: Frye) REFERENCES: Uday et al. Management of Incidental Adnexal Findings on CT and MRI: A White Paper of the ACR Incidental Findings Committee, J Am Aileen Radiol. 2019;17(2):248-254. Cholangiopancreatography MRI 07/26/23 05:38 IMPRESSION: 1. Cholelithiasis. No changes of acute cholecystitis. 2. No changes of primary sclerosing cholangitis. Venous Duplex 07/26/23 06:04 IMPRESSION: No evidence of deep vein thrombosis. Laboratory Results WBC 13.14 10^3/uL (3.29-11.43) H 07/27/23 04:45 RBC 4.11 10^6/uL (3.85-5.65) 07/27/23 04:45 Hgb 10.30 g/dL (11.27-16.99) L 07/27/23 04:45 Hct 33.6 % (36-47) L 07/27/23 04:45 MCV 81.8 fl (85-98) L 07/27/23 04:45 MCH 25.1 pg (27-33) L 07/27/23 04:45 MCHC 30.7 g/dL (30-55) 07/27/23 04:45 RDW 15.4 % (12.1-15.1) H 07/27/23 04:45 Plt Count 281 10^3/cmm (157-399) 07/27/23 04:45 MPV 10.9 fL (7.4-10.4) H 07/27/23 04:45 Neut % (Auto) 75.4 % 07/27/23 04:45 Lymph % (Auto) 18.0 % 07/27/23 04:45 [place] % (Auto) 5.9 % 07/27/23 04:45 Eos % (Auto) 0.1 % 07/27/23 04:45 Baso % (Auto) 0.2 % 07/27/23 04:45 Neut # (Auto) 9.93 10^3/uL (1.8-7.7) H 07/27/23 04:45 Lymph # (Auto) 2.4 10^3/uL (0.8-4.8) 07/27/23 04:45 [place] # (Auto) 0.8 10^3/uL (0.2-0.9) 07/27/23 04:45 Eos # (Auto) 0.0 10^3/uL (0.0-0.8) 07/27/23 04:45 Baso # (Auto) 0.0 10^3/uL (0.0-0.1) 07/27/23 04:45 Nucleated RBC % (auto) 0 % 07/27/23 04:45 Nucleated RBCs # 0.0 /100WBC 07/27/23 04:45 PT 14.30 SECONDS (12.1-14.9) 07/27/23 04:45 INR 1.07 (0.8-1.2) 07/27/23 04:45 D-Dimer 0.78 ug/mLFEU (0-0.59) H 07/25/23 23:55 Sodium 139 mmol/L (136-145) 07/27/23 04:45 Potassium 3.6 mmol/L (3.5-5.1) 07/27/23 04:45 Chloride 104 mmol/L (98-107) 07/27/23 04:45 Carbon Dioxide 25 mmol/L (22-29) 07/27/23 04:45 Anion Gap 13.6 (5-19) 07/27/23 04:45 BUN 7 mg/dL (6-20) 07/27/23 04:45 Creatinine 0.3 mg/dL (0.5-0.9) L 07/27/23 04:45 GFR Calculation 266.9 mL/min (90-130) H 07/27/23 04:45 Glucose 116 mg/dL (65-115) H 07/27/23 04:45 Calculated Osmolality 287 mOsm/kg (285-295) 07/27/23 04:45 Lactic Acid 1.9 mmol/L (0.5-2.2) 07/25/23 23:55 Calcium 8.1 mg/dL (8.5-10.5) L 07/27/23 04:45 Magnesium 2.0 mg/dL (1.7-2.3) 07/27/23 04:45 Total Bilirubin 0.4 mg/dL (0.15-1.2) 07/27/23 04:45 Direct Bilirubin 0.20 mg/dL (0.00-0.30) 07/26/23 06:34 Indirect Bilirubin 0.20 07/26/23 06:34 GGT 629 U/L (5-36) H 07/25/23 23:55 AST 72 U/L (0-32) H 07/27/23 04:45 ALT 275 U/L (0-33) H 07/27/23 04:45 Alkaline Phosphatase 154 U/L (35-105) H 07/27/23 04:45 Lactate Dehydrogenase 530 U/L (135-214) H 07/25/23 23:55 C-Reactive Protein 3.0 mg/L (0.0-4.9) 07/26/23 06:34 Total Protein 6.8 g/dL (6.6-8.7) 07/27/23 04:45 Albumin 4.0 g/dL (3.5-5.2) 07/27/23 04:45 Globulin 2.8 g/dL (1.3-4.6) 07/27/23 04:45 Triglycerides 43 mg/dL (0-150) 07/26/23 06:34 Cholesterol 199 mg/dL (0-200) 07/26/23 06:34 LDL Cholesterol, Calc 117 mg/dL (50-129) 07/26/23 06:34 Total VLDL Cholesterol 9 mg/dL (0-30) 07/26/23 06:34 HDL Cholesterol 73 mg/dL (60-100) 07/26/23 06:34 Cholesterol/HDL Ratio 2.73 mg/dL (0.0-4.40) 07/26/23 06:34 Lipase 40 U/L (13-60) 07/27/23 04:45 Procalcitonin 0.05 ng/mL (0-0.5) 07/26/23 06:34 TSH 1.03 uIU/mL (0.27-4.20) 07/25/23 23:55 HCG, Qual Negative (Negative) 07/26/23 00:00 Urine Color Yellow (Yellow) 07/26/23 01:26 Urine Appearance Slightly cloudy (CLEAR) 07/26/23 01:26 Urine pH 9 (5-7) H 07/26/23 01:26 Ur Specific [place] 1.015 (1.005-1.030) 07/26/23 01:26 Urine Protein Neg (Negative) 07/26/23 01:26 Urine Glucose (UA) Norm (Normal) 07/26/23 01:26 Urine Ketones 2+ (Negative) H 07/26/23 01:26 Urine Blood 2+ (Negative) H 07/26/23 01:26 Urine Nitrate Negative (Negative) 07/26/23 01:26 Urine Bilirubin Neg (Negative) 07/26/23 01:26 Prot Sulfosalicylic Acd Negative (Negative) 07/26/23 01:26 Urine Urobilinogen Neg mg/dL (Negative) 07/26/23 01:26 Ur Leukocyte Esterase Trace (Negative) H 07/26/23 01:26 Urine RBC 5-10 /hpf (0-2) H 07/26/23 01:26 Urine WBC 0-4 /hpf (0-5) H 07/26/23 01:26 Ur Squamous Epith Cells 5-10 /hpf (0-5) H 07/26/23 01:26 Amorphous Sediment Trace /hpf 07/26/23 01:26 Urine Bacteria 1+ /hpf (NONE) H 07/26/23 01:26 Urine Opiates Screen Positive ng/mL (Negative) H 07/26/23 01:26 Acetaminophen < 5.0 ug/mL (10-30) L 07/25/23 23:55 Ur Barbiturates Screen Negative ng/mL (Negative) 07/26/23 01:26 Ur Phencyclidine Scrn Negative ng/mL (Negative) 07/26/23 01:26 Ur Amphetamines Screen Negative ng/mL (Negative) 07/26/23 01:26 U Benzodiazepines Scrn Negative ng/mL (Negative) 07/26/23 01:26 Urine Cocaine Screen Negative ng/mL (Negative) 07/26/23 01:26 U Marijuana (THC) Screen Negative ng/mL (Negative) 07/26/23 01:26 Ethyl Alcohol < 10 mg/dL (0-10) 07/25/23 23:55 Hepatitis A IgM Ab Non-reactive (Nonreactive) 07/26/23 06:34 Hep Bs Antigen Non-reactive (Nonreactive) 07/26/23 06:34 Hep Bs Antibody 51.8 (11.5-1000) 07/26/23 06:34 Hep B Core Total Ab Non-reactive (Nonreactive) 07/26/23 06:34 Hepatitis C Antibody Non-reactive (Nonreactive) 07/26/23 06:34 Vitals Last Vital Signs Temp 98.0 F 07/27/23 08:11 Pulse 58 L 07/27/23 08:11 Resp 18 07/27/23 08:11 BP 122/73 07/27/23 08:11 Pulse Ox 98 07/27/23 08:11 O2 Del Method Room Air 07/27/23 04:00 Discharge Plan Discharge Patient Disposition: Home Condition: Good Prescriptions: New ondansetron HCl 4 mg tablet 4 mg PO Q8H PRN (Reason: nausea and vomiting) 5 Days Qty: 20 0RF Discharge Orders: Discharge Order (Routine); Ordered 07/27/23 Ordered By: Jcaoby Villa Referrals: Abhijit Salazar MD [Physician] - 4-7 days (Needs follow up appt to discuss lap cholecystectomy due to pancreatitis/hepatitis likely from choledocylithiasis. ) Art Martinez FNP [Nurse Practitioner] - 4-7 days (We have notified your physician's clinic of the need for a follow-up appointment to be scheduled. If you have not heard from them within the next 2 business days, please call them directly. WE HAVE SENT THE CLINIC A MESSAGE TO SEE IF WE CAN ESTABLISH THIS CLINIC YOUR PRIMARY CARE PHYSCIAN. ) Discharge Diet: Advance as tolerated and Low Fat Discharge Activity: Increase activity as tolerated Patient Instructions: Ondansetron (By mouth), Pancreatitis (GEN), Abdominal Pain (ED), Opioid Safety Discharge Attestations Time Spent in Discharge Care*: greater than 30 min Quality Metrics Clinical Quality Measures [ No reported AMI, CVA or VTE this stay] Coding Level of Care Code Acute Code for Chg Fwd Diagnoses Cholelithiasis K80.20 Biliary obstruction: without biliary obstruction Cholecystitis presence: without cholecystitis Cholelithiasis location: gallbladder Elevated LFTs R79.89 Elevated lipase R74.8 Nausea & vomiting R11.2 Vomiting type: unspecified Pancreatitis K85.90 Acute hepatitis B17.9
[2023-07-27] MEDS: sodium chloride 0.9% 1,000 ML 150 ML IV (11:25)
[2023-07-27 12:20] VITALS: BP 121/78; PULSE 81; RESP 18; TEMP 36.7; O2SAT 96
[2023-07-27 15:42] VITALS: BP 121/78; PULSE 81; RESP 18; TEMP 36.7; O2SAT 96
[2023-07-29 15:05] LABS: Cytomegalovirus Antibody (IGM) <30.00 AU/mL
[2023-07-30 09:39] LABS: Anti-Nuclear Antibody Pattern Nuclear, Speckled; Anti-Nuclear Antibody Screen POSITIVE (NEGATIVE)
[2023-07-30 12:30] LABS: EBV IGM TEST <36.00 U/mL
[2023-07-31 01:39] LABS: Smooth Muscle Ab Screen NEGATIVE (NEGATIVE)
== END 2023-07-27 15:44 | disposition home or self-care (01) | DRG 445 ==
LOC: ER 07-26 04:04 → MEDSURG 07-26 04:22
PROVIDERS: Emergency Medicine; Admitting Provider Internal Medicine; Emergency Provider Physician Assistant; Visit Provider Family Medicine
DX: K80.20 Calculus of gallbladder without cholecystitis without obstruction (principal); B17.9 Acute viral hepatitis, unspecified
CPT/HCPCS: 36415; 74177; 74181; 76705; 80053; 80061; 80306; 80307; 81001; 82247; 82248; 82977; 83516; 83605; 83615; 83690; 83735; 84145; 84443; 84703; 85025; 85378; 85610; 86038; 86140; 86664; 86665; 86705; 86706; 86709; 86803; 87340; 93970; 96374; 96375; 96376; 99285; J2270; J2765; J7030; Q9967

== ENCOUNTER → 2025-01-11 15:20 | Outpatient (BNVA) | payer SELFPAY | DX: R79.89 Other specified abnormal findings of blood chemistry (principal) | CPT/HCPCS: 80053; 83690; 85025 ==